=== PATIENT | female | born 1965 | race American Indian/Alaskan Native ===

== ENCOUNTER 2016-11-15 12:32 | Inpatient (IN) | payer OTHER ==
[2016-11-15 14:31] LABS: Basophils % (Auto) 0.3 % (0.0-1.8); Eosinophils % (Auto) 0.2 % (0.0-4.3); Hematocrit 45.7 % (30.3-42.9); Mean Corpuscular HGB Conc 33 % (30-34); Mean Corpuscular Hemoglobin 31 pg (28-32); Mean Corpuscular Volume 94 fl (79-97); Platelet Count 223 K/mm3 (140-440); Red Blood Count 4.84 M/mm3 (3.65-5.03); White Blood Count 9.5 K/mm3 (4.5-11.0)
[2016-11-15 14:49] LABS: Alanine Aminotransferase 61 units/L (7-56); Albumin 4.1 g/dL (3.9-5); Albumin/Globulin Ratio 1.1 %; Alkaline Phosphatase 168 units/L (35-129); Anion Gap 17 mmol/L; Blood Urea Nitrogen 6 mg/dL (7-17); Calcium 9.9 mg/dL (8.4-10.2); Carbon Dioxide 28 mmol/L (22-30); Glucose 124 mg/dL (65-100); Lipase 56 units/L (13-60); Potassium 3.4 mmol/L (3.6-5.0); Sodium 138 mmol/L (137-145); Total Protein 7.9 g/dL (6.3-8.2)
[2016-11-15 19:19] LABS: Bacteria,Urine 1+ /HPF (Negative); Bilirubin,Urine SM (Negative); Blood,Urine NEG (Negative); Ketones,Urine TR mg/dL (Negative); Leukocyte Esterase,Urine MOD (Negative); Mucus,Urine 3+ /HPF; Nitrite,Urine NEG (Negative)
[2016-11-15] MEDS ORDERED: K-DUR PO ONE (22:55)
[2016-11-15] MEDS ORDERED: MAG-OX PO ONE (22:55)
[2016-11-15] MEDS ORDERED: MORPHINE IV ONE (23:01)
[2016-11-15] MEDS ORDERED: ZOFRAN IV ONE (23:01)
[2016-11-15] MEDS ORDERED: PEPCID IV ONE (23:01)
[2016-11-15] MEDS ORDERED: CARAFATE PO ONE (23:01)
[2016-11-15] MEDS ORDERED: NACL 0.9% 1000 ML 1,000 ML IV ONE (23:02)
--- NOTE | 2016-11-15 23:02 | Emergency Department Report ---
ED General Adult HPI - General Chief complaint: Abdominal Pain Stated complaint: ABD/BACK PAIN Time Seen by Provider: 11/15/16 22:55 Source: patient, RN notes reviewed Mode of arrival: Wheelchair Limitations: No Limitations - History of Present Illness Initial comments: This is a 50-year-old female. She is previously unknown to me. She does not have a primary care doctor. She denies chronic medical conditions with exception of hypertension. She has no history of abdominal surgeries that she is aware of. The patient presents to the ER complaining of abdominal pain. The abdominal pain started in the back, paralumbar region, and then radiated proximally, and then around the abdomen. It has been present since Thursday. The pain is sharp and achy. It increases with palpation and range of motion. It decreases with rest. Patient admits to nonbloody, nonbilious emesis times one. She denies irritative urinary symptoms, but thinks that she is not urinating as much as her currently. There is no leg pain. There is no leg swelling. There is no chest pain. There is no shortness of breath. There is no diaphoresis. -: Gradual, days(s) Location: back, abdomen Radiation: abdomen Quality: aching Consistency: intermittent Improves with: rest Worsens with: movement Associated Symptoms: nausea/vomiting - Related Data Allergies Allergy/AdvReac Type Severity Reaction Status Date / Time No Known Allergies Allergy Unverified 11/15/16 14:05 ED Review of Systems ROS: Stated complaint: ABD/BACK PAIN Other details as noted in HPI Constitutional: malaise Eyes: denies: vision change ENT: denies: epistaxis Respiratory: denies: cough Cardiovascular: denies: chest pain Gastrointestinal: abdominal pain Genitourinary: denies: urgency, dysuria Musculoskeletal: back pain Skin: denies: lesions Neurological: weakness ED Past Medical Hx - Past Medical History Hx Hypertension: Yes - Surgical History Additional Surgical History: arm and ankle surgery breast surgery - Social History Smoking Status: Current Every Day Smoker Substance Use Type: Marijuana ED Physical Exam - General Limitations: No Limitations General appearance: alert, in distress, obese - Head Head exam: Present: atraumatic, normocephalic - Eye Eye exam: Present: normal appearance - ENT ENT exam: Present: normal exam, normal orophraynx, mucous membranes moist, normal external ear exam - Neck Neck exam: Present: normal inspection, full ROM. Absent: tenderness, meningismus - Respiratory Respiratory exam: Present: normal lung sounds bilaterally. Absent: respiratory distress, wheezes, rales, rhonchi, stridor, chest wall tenderness, accessory muscle use, decreased breath sounds, prolonged expiratory - Cardiovascular Cardiovascular Exam: Present: regular rate, normal rhythm, normal heart sounds. Absent: bradycardia, tachycardia, irregular rhythm, systolic murmur, diastolic murmur, rubs, gallop - GI/Abdominal GI/Abdominal exam: Present: soft, tenderness, normal bowel sounds. Absent: distended, guarding, rebound, rigid, pulsatile mass - Extremities Exam Extremities exam: Present: normal inspection, full ROM, normal capillary refill. Absent: pedal edema, joint swelling, calf tenderness - Back Exam Back exam: Present: normal inspection, full ROM, paraspinal tenderness. Absent : tenderness, CVA tenderness (R), CVA tenderness (L), muscle spasm - Neurological Exam Neurological exam: Present: alert, oriented X3, other (Extraocular movements intact. Tongue midline. No facial droop. Facial sensation intact to light touch in the V1, V2, V3 distribution bilaterally. 5 and 5 strength in 4 extremities.. Sensation is intact to light touch in 4 extremities.). Absent: motor sensory deficit - Psychiatric Psychiatric exam: Present: normal affect, normal mood - Skin Skin exam: Present: warm, dry, intact, normal color. Absent: rash ED Course Vital Signs 11/15/16 11/16/16 11/16/16 14:06 01:10 03:58 Temperature 98.3 F 98.5 F 97.5 F L Pulse Rate 91 H 85 82 Respiratory 22 20 17 Rate Blood Pressure 159/112 Blood Pressure 167/86 114/59 [Left] O2 Sat by Pulse 98 95 96 Oximetry - Reevaluation(s) Reevaluation #1: 11/15/16 23:49 differential diagnosis: GERD, gastritis, pancreatitis, biliary colic, upper urinary tract infection, perforated viscus, hernia Assessment and plan: 50-year-old female with back pain and abdominal pain. Urinalysis does suggest UTI, but she does not endorse classic irritative symptoms. Has mild obstructive symptoms. Also has nonspecific transaminitis and elevated alkaline phosphatase , with no right upper quadrant tenderness. We will obtain EKG, CT scan of the abdomen and pelvis, and treat the patient symptomatically. We will reassess once the CT scan has resulted. Reevaluation #2: 11/16/16 01:12 case discussed with the hospital physician, Dr. Zuñiga, who accepts the patient to her service. Case discussed with gastroenterology, Dr. Graves, he will follow as a consult. Currently awaiting callback from general surgery. Imaging studies and laboratory studies suggest obstructive hepatopathy, most likely obstructing common bile duct stone, additional pain medication, antibiotics are ordered. Reevaluation #3: 11/16/16 01:14 Case discussed with general surgery, Dr. Huffman, who recommends MRCP, indicates he will follow as a consult. I will defer to the inpatient team to order an MRCP. ED Medical Decision Making - Lab Data Result diagrams: 11/15/16 14:16 11/15/16 14:16 Vital Signs 11/15/16 14:06 Temperature 98.3 F Pulse Rate 91 H Respiratory 22 Rate Blood Pressure 159/112 O2 Sat by Pulse 98 Oximetry Lab Results 11/15/16 11/15/16 11/15/16 Range/Units 14:16 14:16 18:43 WBC 9.5 (4.5-11.0) K/mm3 RBC 4.84 (3.65-5.03) M/mm3 Hgb 15.0 H (10.1-14.3) gm/dl Hct 45.7 H (30.3-42.9) % MCV 94 (79-97) fl MCH 31 (28-32) pg MCHC 33 (30-34) % RDW 14.0 (13.2-15.2) % Plt Count 223 (140-440) K/mm3 Lymph % (Auto) 11.2 L (13.4-35.0) % [place] % (Auto) 6.8 (0.0-7.3) % Eos % (Auto) 0.2 (0.0-4.3) % Baso % (Auto) 0.3 (0.0-1.8) % Lymph # 1.1 L (1.2-5.4) K/mm3 [place] # 0.6 (0.0-0.8) K/mm3 Eos # 0.0 (0.0-0.4) K/mm3 Baso # 0.0 (0.0-0.1) K/mm3 Seg Neutrophils % 81.5 H (40.0-70.0) % Seg Neutrophils # 7.7 (1.8-7.7) K/mm3 Sodium 138 (137-145) mmol/L Potassium 3.4 L (3.6-5.0) mmol/L Chloride 96.0 L (98-107) mmol/L Carbon Dioxide 28 (22-30) mmol/L Anion Gap 17 mmol/L BUN 6 L (7-17) mg/dL Creatinine 0.5 L (0.7-1.2) mg/dL Estimated GFR > 60 ml/min BUN/Creatinine Ratio 12.00 % Glucose 124 H (65-100) mg/dL Calcium 9.9 (8.4-10.2) mg/dL Total Bilirubin 2.10 H (0.1-1.2) mg/dL AST 87 H (5-40) units/L ALT 61 H (7-56) units/L Alkaline Phosphatase 168 H (35-129) units/L Total Protein 7.9 (6.3-8.2) g/dL Albumin 4.1 (3.9-5) g/dL Albumin/Globulin Ratio 1.1 % Lipase 56 (13-60) units/L Urine Color [place] (Yellow) Urine Turbidity Clear (Clear) Urine pH 5.0 (5.0-7.0) Ur Specific [employer] 1.024 (1.003-1.030) Urine Protein 30 mg/dl (Negative) mg/dL Urine Glucose (UA) Neg (Negative) mg/dL Urine Ketones Tr (Negative) mg/dL Urine Blood Neg (Negative) Urine Nitrite Neg (Negative) Urine Bilirubin Sm (Negative) Urine Ictotest Negative (Negative) Urine Urobilinogen 4.0 (<2.0) mg/dL Ur Leukocyte Esterase Mod (Negative) Urine WBC (Auto) 24.0 H (0.0-6.0) /HPF Urine RBC (Auto) 13.0 (0.0-6.0) /HPF U Epithel Cells (Auto) 8.0 (0-13.0) /HPF Urine Bacteria (Auto) 1+ (Negative) /HPF Urine Mucus 3+ /HPF - EKG Data 11/16/16 01:12 Normal sinus, 91 bpm, borderline left axis deviation, right bundle branch block , abnormal EKG, not morphologically consistent with STEMI, QTC 489 ms and prolonged. - Radiology Data Radiology results: report reviewed, image reviewed ruq ultrasound: Stones noted within the gallbladder lumen. The gallbladder wall thickness is prominent at 4 mm., Bile duct is dilated at 11 mm. No definitive stone within the ductal portion is noted. Impression: Cholelithiasis with a large common bile duct measuring up to [address] scan of the abdomen and pelvis demonstrates a distended gallbladder. Stones within the gallbladder lumen., Bile duct is dilated. There is dilatation of the pancreatic duct. No pseudocyst is noted. The appendix is normal. Critical care attestation.: If time is entered above; I have spent that time in minutes in the direct care of this critically ill patient, excluding procedure time. ED Disposition Clinical Impression: Cholecystitis Disposition: OP ADMIT IP TO THIS HOSP Is pt being admited?: Yes Condition: Good
[2016-11-15] MEDS ORDERED: NACL ONE (23:11)
--- NOTE | 2016-11-16 00:50 | Ultrasound Report ---
FINAL REPORT PROCEDURE: US ABDOMEN LIMITED TECHNIQUE: Real-time sonography was performed of the gallbladder with image documentation. CPT 59788 HISTORY: abd pain COMPARISON: No prior studies are available for comparison. FINDINGS: There are stones within the gallbladder lumen. The gallbladder wall thickness is slightly prominent 4 millimeters. Common bile duct is dilated at 11 millimeters. Further evaluation with HIDA scan or advanced imaging such is MRCP may be appropriate. No definitive stone within the ductal system is seen on this study. Portions of the liver imaged are normal. The portions of the right kidney imaged are normal. The pancreas is not visualized.. IMPRESSION: Cholelithiasis with enlarged common bile duct measuring up to 11 millimeters. Further evaluation of the biliary ductal system utilizing HIDA scan or advanced imaging such as MRCP should be entertained.
--- NOTE | 2016-11-16 01:02 | Cat Scan Report ---
FINAL REPORT PROCEDURE: CT ABDOMEN PELVIS W CON TECHNIQUE: Computerized axial tomography of the abdomen and pelvis was performed after the IV injection of iodinated nonionic contrast. HISTORY: abd pain COMPARISON: Abdominal ultrasound the same day FINDINGS: Visualized lower thorax: No significant abnormality. Liver: Normal size and attenuation. Spleen: Normal size and attenuation. Gallbladder and biliary system: The gallbladder is distended. There are stones identified within the gallbladder lumen. There is distention of common bile duct measuring up to 11 millimeters. Slight prominence of the pancreatic duct is also noted. Are some calcifications within the head and body of the pancreas. A chronic pancreatitis pattern is suspected. Definitive stone in the ductal system cannot be adequately assessed on this study. Further evaluation with HIDA scan may be of benefit.. Pancreas: The pancreas size is normal. There is dilatation of the pancreatic duct. Numerous calcifications identified in the head and body of the pancreas. No pseudocyst.. Adrenals: Normal. Kidneys: Normal. GI tract: Stomach is normal. The small bowel has a normal caliber. No obstruction is seen. The cecum, appendix and colon are normal.. Lymph nodes and mesentery: Normal. Vasculature: Normal. Bladder: Normal. Reproductive organs: There is a large calcified mass in the uterus most consistent with a large fibroid.. Peritoneum: No free fluid. Musculoskeletal structures: Moderate degenerative changes of the thoracic and lumbar spine. There is forward subluxation of L4 relation L5 by approximately 4 millimeters.. Other: None. IMPRESSION: Cholelithiasis. The gallbladder lumen is distended. The common bile duct is dilated measuring up to 11 millimeters. The pancreatic duct is dilated. There are numerous calcifications throughout the head and body of the pancreas. Chronic pancreatitis is suspected. Further evaluation of the biliary ductal system utilizing HIDA scan and possibly other imaging modalities may be of benefit this patient. No evidence of intestinal or urinary tract obstruction. No ileus or enteritis. The appendix is normal. Large calcified fibroid in the uterus is suspected as described.
[2016-11-16] MEDS ORDERED: DILAUDID IV ONE (01:06)
[2016-11-16] MEDS ORDERED: ZOSYN/NS 4.5GM/100ML 4.5 GM/100 ML VIAL IV ONE (01:06)
[2016-11-16] MEDS ORDERED: ZOFRAN IV PRN (02:38)
[2016-11-16] MEDS ORDERED: TYLENOL PO PRN (02:38)
[2016-11-16] MEDS ORDERED: MILK OF MAGNESIA PO PRN (02:38)
[2016-11-16] MEDS ORDERED: DULCOLAX PR PRN (02:38)
--- NOTE | 2016-11-16 03:17 | History and Physical Report ---
History of Present Illness Date of examination: 11/16/16 Date of admission: 11/16/16 02:39 History of present illness: 50-year-old woman with a history of hypertension comes to the emergency room with complaints of abdominal pain. Pain starts in the mid back and radiates all the way to the mid abdomen. she describes the pain as sharp, constant, intensity 7/10, she cannot identify exacerbating or relieving factors. Admits to nausea vomiting, no fever or chills Patient denies chest pain, palpitation, shortness of breath, cough, hematochezia, dysuria, frequency, focal weakness, dysarthria, fever chills, polydipsia polyuria, hot or cold intolerance, easy bruisability, or rash or bleeding from mucosal membrane, rhinorrhea, epistaxis, earache, tinnitus, blurry vision, eye discharge, anxiety, depression. Other review of systems negative PAST SURGICAL HISTORY: Cyst removed from the breast, ankle surgery SOCIAL HISTORY: One pack a week, drinking 2 beers a day, no drugs FAMILY HISTORY: Hypertension Medications and Allergies Allergies Allergy/AdvReac Type Severity Reaction Status Date / Time No Known Allergies Allergy Unverified 11/15/16 14:05 Active Meds: Active Medications Acetaminophen (Tylenol) 650 mg PO Q4H PRN PRN Reason: Pain MILD(1-3)/Fever >100.5/CRABTREE Bisacodyl (Dulcolax) 10 mg RI QDAY PRN PRN Reason: Constipation unrelieved by MOM Enoxaparin Sodium (Lovenox) 40 mg SUB-Q QDAY [facility] Sodium Chloride (Nacl 0.9% 1000 Ml) 1,000 mls @ 100 mls/hr IV DIRECT SVEN Magnesium Hydroxide (Milk Of Magnesia) 30 ml PO Q4H PRN PRN Reason: Constipation Morphine Sulfate (Morphine) 2 mg IV Q4H PRN PRN Reason: Pain, Moderate (4-6) Ondansetron HCl (Zofran) 4 mg IV Q8H PRN PRN Reason: N/V unrelieved by Reglan Exam - Physical Exam Narrative exam: Gen. appearance: Patient lying in bed, no apparent distress HEENT: Normocephalic, atraumatic, pupils equally round and reactive to light, extraocular movement intact, and no sclericterus,. No JVD or thyromegaly or nodule,neck supple, no carotid bruit ,mucous membranes moist, no exudate or erythema Heart: S1, S2, regular rate and rhythm Lungs: Clear to auscultation bilaterally, breathing comfortable Abdomen: Positive bowel sounds, tender and mid abdomen, nondistended, no organomegaly Extremity: No edema, cyanosis, clubbing Skin: No rash, nodules, warm, dry Neuro: Oriented 3, cranial nerves II-12 intact, speech is fluent, motor and sensory intact - Constitutional Vitals: Temp Pulse Resp BP Pulse Ox 98.5 F 85 20 167/86 95 11/16/16 01:10 11/16/16 01:10 11/16/16 01:10 11/16/16 01:10 11/16/16 01:10 Results - Labs CBC & Chem 7: 11/15/16 14:16 11/15/16 14:16 - Imaging and Cardiology CT scan - abdomen: report reviewed CT scan - pelvis: report reviewed US - abdomen: report reviewed Assessment and Plan Choledocholithiasis Hypertension Admit to medicine Start IV fluids, IV antibiotics Consult GI, surgery start DVT prophylaxis, morphine
[2016-11-16] MEDS ORDERED: APRESOLINE IV PRN (03:24)
--- NOTE | 2016-11-16 03:44 | Admit Criteria Form ---
Admission Criteria Documentation: GALLBLADDER OR BILE DUCT INFLAMMATION OR STONE Clinical Indications for Admission to Inpatient Care ( Place 'X' for any and all applicable criteria): Admission is indicated for patients with ANY ONE of the following(1)(2)(3)(4)(5) : [ ]I. Acute cholecystitis as indicated by ALL of the following: [ ]a) Right upper quadrant pain, mass, or tenderness [ ]b) Systemic signs of inflammation indicated by ANY ONE of the following: [ ]i) Fever [ ]ii) C-reactive protein level greater than 10 mg/L (95 nmol/L) [ ]iii) White blood cell count greater than 10,000/mm3 (10 x109/L) or less than 4000/mm3 (4 x109/L) [X ]II. Inpatient admission required rather than observation care (Also use Gallbladder or Bile Duct Inflammation or Stone: Observation Care as appropriate) because of ANY ONE of the following: [ ]a) Common bile duct obstruction diagnosed [ ]b) Vomiting that is severe or persistent [ ]c) Severe pain requiring acute inpatient management [ ]d) Signs of intestinal obstruction or peritonitis [A] [ ]e) Severe electrolyte abnormalities requiring inpatient care [ ]f) Absent bowel sounds with complete ileus(8) [ ]g) Hemodynamic instability [ ]h) High fever or infection requiring inpatient admission as indicated by ANY ONE of the following (9): [ ]1) Appropriate outpatient or observation care antimicrobial Treatment. unavailable, not effective, or not feasible [ ]2) Temperature greater than 104.9 degrees F (40.5 degrees C) (oral) [ ]3) Temperature greater than 103.1 degrees F (39.5 degrees C) (oral) or less than 96.8 degrees F (36 degrees C) (rectal) that does not respond to all emergency treatment measures [ ]4) Documented bacteremia [ ]i) IV fluid to replace significant ongoing losses (greater than 3 L/m2 per day) [ ]j) Percutaneous or open drainage (eg, abscess, biliary tract) procedures [ ]k) Immediate inpatient surgery [X ]l) Other condition, treatment or monitoring requiring inpatient admission [ ]III. Acute cholangitis as indicated by ALL of the following(9)(10): [ ]a) Systemic signs of inflammation indicated by ANY ONE of the following: [ ]i) Fever [ ]ii) C-reactive protein level greater than 10 mg/L (95 nmol /L) [ ]iii) White blood cell count greater than 10,000/mm3 (10 x109/L) or less than 4000/mm3 (4 x109/L) [ ]b) Evidence of common bile duct disease indicated by ANY ONE of the following: [ ]i) Total serum bilirubin level greater than or equal to 2 mg/dL (34 micromoles/L) [ ]ii) Liver function test (alkaline phosphatase (ALP), r- glutamyltransferase (GGT), aspartate aminotransferase (AST), or alanine aminotransferase (ALT)) greater than 1.5 times the upper limit of normal[B] [ ]iii) Hepatobiliary imaging showing biliary dilatation or evidence of etiology (eg, stricture, stone, previously placed stent) Extended stay beyond goal length of stay may be needed for (1)(2)): [ ]a) Bacteremia or Hemodynamic instability [ ]b) Cholecystectomy [ ]c) Other surgical procedure(24) [ ]d) Percutaneous or endoscopic ultrasound-guided cholecystostomy The original [facility] content created by [facility] has been revised. The portions of the content which have been revised are identified through the use of italic text or in bold, and [facility] has neither reviewed nor approved the modified material. All other unmodified content is copyright [facility]. Please see references footnoted in the [facility] Admission Criteria Met: Yes
[2016-11-16] MEDS: MORPHINE IV PRN ×4 (05:24→19:56)
[2016-11-16] MEDS ORDERED: ZOSYN/NS 3.375GM/50ML 3.375 GM/50 ML BAG IV SCH (06:00)
[2016-11-16] MEDS: LOVENOX SUB-Q SCH (09:34)
--- NOTE | 2016-11-16 12:18 | Progress Note ---
Assessment and Plan Pt not in room. taken down for MRCP hx as below (from chart) History of present illness: 50-year-old woman with a history of hypertension comes to the emergency room with complaints of abdominal pain. Pain starts in the mid back and radiates all the way to the mid abdomen. she describes the pain as sharp, constant, intensity 7/10, she cannot identify exacerbating or relieving factors. Admits to nausea vomiting, no fever or chills Patient denies chest pain, palpitation, shortness of breath, cough, hematochezia, dysuria, frequency, focal weakness, dysarthria, fever chills, polydipsia polyuria, hot or cold intolerance, easy bruisability, or rash or bleeding from mucosal membrane, rhinorrhea, epistaxis, earache, tinnitus, blurry vision, eye discharge, anxiety, depression. Other review of systems negative PAST SURGICAL HISTORY: Cyst removed from the breast, ankle surgery SOCIAL HISTORY: One pack a week, drinking 2 beers a day, no drugs FAMILY HISTORY: Hypertension await MRCP results await GI eval will follow Selected Entries 11/16/16 08:00 Temperature 98.4 F Pulse Rate [ 63 Right Radial] Respiratory 20 Rate Blood Pressure 117/60 [Right Arm] Laboratory Tests 11/15/16 11/15/16 14:16 14:16 WBC 9.5 Hgb 15.0 H Hct 45.7 H Sodium 138 Potassium 3.4 L Chloride 96.0 L Glucose 124 H Total Bilirubin 2.10 H AST 87 H ALT 61 H Alkaline Phosphatase 168 H Lipase 56 Objective Vital Signs - 12hr 11/16/16 11/16/16 11/16/16 03:58 04:44 08:00 Temperature 97.5 F L 98.3 F 98.4 F Pulse Rate 82 Pulse Rate [ 70 Right From Monitor] Pulse Rate [ 63 Right Radial] Respiratory 17 22 20 Rate Blood Pressure 114/59 [Left] Blood Pressure 130/70 117/60 [Right Arm] O2 Sat by Pulse 96 96 95 Oximetry - Labs 11/15/16 14:16 11/15/16 14:16
[2016-11-16] MEDS: ZOSYN/NS 4.5GM/100ML 4.5 GM/100 ML VIAL IV SCH ×2 (15:38→22:16)
--- NOTE | 2016-11-16 15:48 | Magnetic Resonance Report ---
FINAL REPORT EXAM: MR ABDOMEN MRCP HISTORY: r/o CBD stones TECHNIQUE: Multiplanar, multisequence MRI (MRCP) of the abdomen was performed without intravenous contrast. PRIORS: Right upper quadrant ultrasound and CT of the abdomen and pelvis 11/15/2016. FINDINGS: Lower thorax: The lung bases are clear. The visualized portions of the heart are normal. Liver: There is diffuse drop in signal of the liver on T1 out of phase imaging. Mild intrahepatic biliary ductal dilation is again seen. No focal hepatic lesions. Gallbladder/ biliary system: Previously seen cholelithiasis is not definitively seen on the study. No gallbladder wall thickening. Pericholecystic fluid is again seen. Dilated common bile duct is again seen measuring up to 11 millimeters. There is suggestion of a 4 millimeter filling defect in the distal common bile duct. Spleen: No splenic lesions are seen. Pancreas: Dilated pancreatic duct is again seen measuring up to 9 millimeters. No focal pancreatic lesions are seen. No pancreatic or peripancreatic inflammation. Kidneys: No renal masses, cysts or hydronephrosis. Adrenal glands: No adrenal masses. Vasculature: The abdominal aorta is nonaneurysmal. Lymph nodes: No enlarged lymph nodes are seen in the abdomen. Bowel: No bowel obstruction. No bowel wall thickening. No free fluid. Abdominal wall: No abdominal wall hernia or other subcutaneous findings. Bones: No definite or specific abnormality. IMPRESSION: 1. Possible 4 millimeter distal common bile duct stone with dilated common bile duct, intrahepatic biliary ducts and pancreatic duct. Recommend further evaluation with ERCP. 2. Pericholecystic fluid may be related to acute cholecystitis. 3. Hepatic steatosis.
--- NOTE | 2016-11-16 17:31 | Event Note ---
Date: 11/16/16 Patient was admitted earlier this morning Patient seen and examined She is awake and alert Not in any distress Complains of pain in the right upper quadrant and right mid back Denies any nausea or vomitings or dysuria Abdomen is soft list tenderness across the upper abdomen Await surgery evaluation See H&P for details
--- NOTE | 2016-11-16 20:53 | Consultation ---
History of Present Illness - Reason for Consult Consult date: 11/16/16 - History of Present Illness See Dictated note Medications and Allergies Allergies Allergy/AdvReac Type Severity Reaction Status Date / Time No Known Allergies Allergy Unverified 11/15/16 14:05 Active Meds: Active Medications Acetaminophen (Tylenol) 650 mg PO Q4H PRN PRN Reason: Pain MILD(1-3)/Fever >100.5/CRABTREE Bisacodyl (Dulcolax) 10 mg LA QDAY PRN PRN Reason: Constipation unrelieved by MOM Enoxaparin Sodium (Lovenox) 40 mg SUB-Q QDAY SVEN Last Admin: 11/16/16 09:34 Dose: 40 mg Hydralazine HCl (Apresoline) 5 mg IV Q6H PRN PRN Reason: Hypertension Sodium Chloride (Nacl 0.9% 1000 Ml) 1,000 mls @ 100 mls/hr IV DIRECT SVEN Piperacillin Sod/Tazobactam Sod (Zosyn/Ns 4.5gm/100ml) 4.5 gm in 100 mls @ 200 mls/hr IV Q8HR SVEN Last Admin: 11/16/16 15:38 Dose: 200 mls/hr Magnesium Hydroxide (Milk Of Magnesia) 30 ml PO Q4H PRN PRN Reason: Constipation Morphine Sulfate (Morphine) 2 mg IV Q4H PRN PRN Reason: Pain, Moderate (4-6) Last Admin: 11/16/16 19:56 Dose: 2 mg Ondansetron HCl (Zofran) 4 mg IV Q8H PRN PRN Reason: N/V unrelieved by Reglan Exam - Constitutional Vitals: Temp Pulse Resp BP Pulse Ox 98.5 F 65 18 132/72 95 11/16/16 15:05 11/16/16 15:05 11/16/16 15:05 11/16/16 15:05 11/16/16 15:05 Results - Labs CBC & Chem 7: 11/15/16 14:16 11/15/16 14:16 Assessment and Plan Pt with 4 d hx back and then abd pain with N/V, abnormal LFTs. MRCP shows probable stone in distal CBD. Plan - ERCP - agree with abx for possible cholangitis
[2016-11-17] MEDS: MORPHINE IV PRN ×5 (00:04→23:51)
--- NOTE | 2016-11-17 01:55 | Consultation ---
REFERRING PHYSICIAN: Dr. Zuñiga. REASON FOR CONSULTATION: Abdominal pain. HISTORY OF PRESENT ILLNESS: The patient is a 50-year-old woman who was in her usual state of good health until November 12 when she noted onset of mild right back pain. This progressed and was associated with nausea, vomiting. She then developed epigastric and right-sided abdominal pain as well with ongoing problems with nausea and vomiting. She was also having chills and sweats. Because of progressive symptoms, she presented to the Emergency Room. She states the vomiting has not been frequent, but has been occurring. There has been no GI bleeding. She denies prior similar symptoms. She has no history of peptic ulcer disease. Denies aspirin or nonsteroidal usage. In the ER, she was noted to have elevated liver enzymes and through the course of the day, she has been found to have stones in the distal common bile duct on MRCP as well as multiple stones in the gallbladder. PAST MEDICAL HISTORY: She has no known drug allergies. MEDICATIONS: Hypertension medication is unknown. PAST MEDICAL HISTORY: She has history of: 1. Hypertension. 2. Left breast cyst surgery. FAMILY HISTORY: Noncontributory and negative for malignancy. SOCIAL HISTORY: She smokes a pack per week and states she drinks a 6 pack of beer a week. REVIEW OF SYSTEMS: As noted above and otherwise negative for chest pain, shortness of breath, cough, hemoptysis, dysuria, or hematuria. PHYSICAL EXAMINATION: GENERAL: This is a middle-aged black female lying in bed, in no apparent distress. VITAL SIGNS: Temperature 98.5, pulse 65, blood pressure 132/72. HEENT: She is anicteric. Pupils are round and reactive. Oropharynx is clear. LUNGS: Clear bilaterally to auscultation. CARDIOVASCULAR: Regular with normal S1, S2. No extra heart sounds. ABDOMEN: Soft with good bowel sounds. The patient has moderate tenderness to palpation in the epigastrium and right upper quadrant. RECTAL: Deferred. EXTREMITIES: Reveal no cyanosis, clubbing, or edema. NEUROLOGIC: She is alert and oriented x3. Grossly nonfocal. LABORATORY DATA: White count is 9.5, hemoglobin 15.0, hematocrit 45.7, MCV of 94, platelet count of 223,000. Sodium , potassium 3.4, chloride 96, bicarb 28, BUN 6, creatinine 0.5, glucose is 124. AST is 87, ALT is 61, alk phos 168, total bilirubin is 2.1, albumin is 4.1. DIAGNOSTIC DATA: Ultrasound report is as noted above and MRCP shows dilated common bile duct with probable 4 mm distal filling defect. It also shows pericholecystic fluid and hepatic steatosis. IMPRESSION: Choledocholithiasis - this would be responsible for the pain and possible chills with low-grade cholangitis. I agree with the antibiotics. I discussed the ERCP with the patient. PLAN: ERCP. JOB# [id number] HRC/NTS
[2016-11-17] MEDS: NACL 0.9% 1000 ML 1,000 ML IV SCH ×3 (03:33→19:15)
[2016-11-17] MEDS: ZOSYN/NS 4.5GM/100ML 4.5 GM/100 ML VIAL IV SCH ×3 (06:20→22:48)
[2016-11-17 07:41] LABS: Basophils % (Auto) 0.7 % (0.0-1.8); Eosinophils % (Auto) 2.2 % (0.0-4.3); Hemoglobin 12.6 gm/dl (10.1-14.3); Mean Corpuscular HGB Conc 32 % (30-34); Mean Corpuscular Hemoglobin 31 pg (28-32); Mean Corpuscular Volume 96 fl (79-97); Platelet Count 170 K/mm3 (140-440); Red Blood Count 4.05 M/mm3 (3.65-5.03); Red Cell Distribution Width 13.5 % (13.2-15.2); White Blood Count 7.3 K/mm3 (4.5-11.0)
[2016-11-17] MEDS ORDERED: WATER FOR IRRIG STERILE IR ONE (07:48)
[2016-11-17] MEDS ORDERED: NACL 0.9% 100 ML ONE (07:48)
[2016-11-17 07:57] LABS: Anion Gap 20 mmol/L; Blood Urea Nitrogen 5 mg/dL (7-17); Calcium 8.7 mg/dL (8.4-10.2); Carbon Dioxide 22 mmol/L (22-30); Chloride 101.4 mmol/L (98-107); Glucose 69 mg/dL (65-100); Sodium 139 mmol/L (137-145)
[2016-11-17] MEDS ORDERED: XYLOCAINE MPF 2% ONE (08:00)
[2016-11-17 09:11] LABS: Hematocrit TNR % (30.3-42.9)
[2016-11-17] MEDS ORDERED: DIPRIVAN 10 MG/ML IV ONE ×2 (09:12)
[2016-11-17] MEDS ORDERED: VERSED ONE (09:12)
--- NOTE | 2016-11-17 09:53 | Post Operative Note ---
Pre-op diagnosis: CBD stones Post-op diagnosis: other (CBD stone, dilated duct, gastric fundus ulcer) Findings: 1. CBD stone, removed from duct with balloon. 2. CBD dilated 14 mm. 3. 1 cm gastric fundus ulcer Procedure: ERCP with ES, stone removal Anesthesia: MAC Surgeon: DELMIS AVILEZ Estimated blood loss: minimal Pathology: none Condition: stable Disposition: floor (Will need PPI, and then will assess gastric ulcer in near future with EGD)
[2016-11-17] MEDS ORDERED: PROTONIX IV SCH (10:00)
--- NOTE | 2016-11-17 11:01 | Anesthesia Day of Surgery ---
Anesthesia Day of Surgery - Day of Surgery Patient Examined: Yes Patient H&P Reviewed: Yes Patient is NPO: Yes
--- NOTE | 2016-11-17 11:01 | Anesthesia Consultation ---
Anesthesia Consult and Med Hx Date of service: 11/17/16 - Airway Anesthetic Teeth Evaluation: Dentures (upper) ROM Head & Neck: Adequate Mental/Hyoid Distance: Adequate Mallampati Class: Class II Intubation Access Assessment: Probably Good - Pulmonary Exam CTA: Yes - Cardiac Exam Cardiac Exam: RRR - Pre-Operative Health Status ASA Pre-Surgery Classification: ASA3 Proposed Anesthetic Plan: MAC - Pulmonary Hx Asthma: No COPD: No Hx Pneumonia: No Hx Sleep Apnea: Yes - Cardiovascular System Hx Hypertension: Yes - Central Nervous System Hx Psychiatric Problems: No - Endocrine Hx End Stage Renal Disease: No - Other Systems Hx Cancer: No
--- NOTE | 2016-11-17 11:35 | Operative Report ---
ERCP REPORT PROCEDURE: ERCP with sphincterotomy. PREOPERATIVE DIAGNOSIS: Choledocholithiasis. POSTOPERATIVE DIAGNOSIS: Choledocholithiasis with gastric ulcer. SEDATION: MAC by Anesthesia. HISTORY: The patient is a 50-year-old woman who came in with abdominal and back pain. She was found to have elevated liver enzymes and a 4 mm stone on MRCP with dilated common bile duct. DESCRIPTION OF PROCEDURE: Indications, risks, and benefits were explained and consent was obtained. The patient was placed on abdomen on fluoroscopy table and sedated. Obvious video duodenoscope was passed through the mouth and oropharynx into the descending duodenum. Major papilla was visualized. Then, selective cannulation of the common bile duct was achieved using the Dreamtome and wire. FINDINGS: 1. Bulging major papilla with normal overlying mucosa. 2. CBD is dilated to 14 mm. An 8 mm biliary sphincterotomy was performed in the 12 o'clock direction. Subsequently, a 12 mm balloon was used to sweep the duct with findings of a small 4 to 5 mm yellow stone that came out. No further filling defects were identified. Biliary tree was otherwise unremarkable though gallbladder was not visualized. 3. Pancreatic duct was not visualized. 4. On endoscopy, approximately 1 cm gastric fundus ulcer was noted with no bleeding or stigmata. Visualization was not thorough due to the nature of the ____ scoped. The patient tolerated the procedure well without immediate complications. ESTIMATED BLOOD LOSS: Minimal. IMPRESSION: 1. Choledocholithiasis -- removed after sphincterotomy. 2. Dilated common bile duct. 3. Gastric fundus ulcer. RECOMMENDATIONS: 1. Monitor for response. 2. Avoid aspirin, nonsteroidals and blood thinners for 2 weeks. 3. Proton pump inhibitors. 4. The patient will need an upper endoscopy to assess ulcer in the near future. JOB# [id number] HRC/NTS
--- NOTE | 2016-11-17 13:34 | Progress Note ---
Assessment and Plan Pt resting comfortably. NAD but does c/o some abd pain Abd soft. mild RUQ & epig tenderness GI eval appreciated. s/p successful ERCP with stone extraction continue NPO until pain resolves continue IV antibiotics surgically stable f/u labs in am Selected Entries 11/17/16 11/17/16 09:55 10:32 Temperature 98.5 F Pulse Rate 75 Respiratory 18 Rate Blood Pressure 144/88 Laboratory Tests 11/17/16 11/17/16 06:59 06:59 WBC 7.3 Hgb 12.6 Hct TNR Sodium 139 Potassium 4.0 Chloride 101.4 Carbon Dioxide 22 BUN 5 L Creatinine 0.4 L Objective Vital Signs - 12hr 11/17/16 11/17/16 11/17/16 07:36 08:31 08:34 Temperature 97.5 F L 98.1 F 98.1 F Pulse Rate 85 85 Pulse Rate [ 82 Right Radial] Respiratory 20 22 22 Rate Blood Pressure 141/89 141/89 Blood Pressure 150/82 [Right Arm] O2 Sat by Pulse 95 95 95 Oximetry 11/17/16 11/17/16 11/17/16 09:55 10:20 10:32 Temperature 98.5 F Pulse Rate 97 H 73 75 Pulse Rate [ Right Radial] Respiratory 16 22 18 Rate Blood Pressure 142/88 138/85 144/88 Blood Pressure [Right Arm] O2 Sat by Pulse 95 95 96 Oximetry - Labs 11/17/16 06:59 11/17/16 06:59 Diabetes panel 11/17/16 Range/Units 06:59 Sodium 139 (137-145) mmol/L Potassium 4.0 (3.6-5.0) mmol/L Chloride 101.4 (98-107) mmol/L Carbon Dioxide 22 (22-30) mmol/L BUN 5 L (7-17) mg/dL Creatinine 0.4 L (0.7-1.2) mg/dL Glucose 69 (65-100) mg/dL Calcium 8.7 (8.4-10.2) mg/dL Calcium panel 11/17/16 Range/Units 06:59 Calcium 8.7 (8.4-10.2) mg/dL Pituitary panel 11/17/16 Range/Units 06:59 Sodium 139 (137-145) mmol/L Potassium 4.0 (3.6-5.0) mmol/L Chloride 101.4 (98-107) mmol/L Carbon Dioxide 22 (22-30) mmol/L BUN 5 L (7-17) mg/dL Creatinine 0.4 L (0.7-1.2) mg/dL Glucose 69 (65-100) mg/dL Calcium 8.7 (8.4-10.2) mg/dL Adrenal panel 11/17/16 Range/Units 06:59 Sodium 139 (137-145) mmol/L Potassium 4.0 (3.6-5.0) mmol/L Chloride 101.4 (98-107) mmol/L Carbon Dioxide 22 (22-30) mmol/L BUN 5 L (7-17) mg/dL Creatinine 0.4 L (0.7-1.2) mg/dL Glucose 69 (65-100) mg/dL Calcium 8.7 (8.4-10.2) mg/dL
[2016-11-17 13:47] LABS: Hematocrit 38.5 % (30.3-42.9); Hemoglobin 12.6 gm/dl (10.1-14.3); Mean Corpuscular HGB Conc 33 % (30-34); Mean Corpuscular Hemoglobin 31 pg (28-32); Mean Corpuscular Volume 95 fl (79-97); Platelet Count 174 K/mm3 (140-440); Red Blood Count 4.05 M/mm3 (3.65-5.03); Red Cell Distribution Width 13.5 % (13.2-15.2); White Blood Count 7.2 K/mm3 (4.5-11.0)
[2016-11-17] MEDS: PROTONIX IV SCH ×2 (14:01→22:49)
--- NOTE | 2016-11-17 14:02 | Progress Note ---
Assessment and Plan 50-year-old woman with a history of hypertension comes to the emergency room with complaints of abdominal pain. MRCP's showed 4 mm distal common bile duct stone, which was removed today by ERCP. Choledocholithiasis and cholecystisis - status post removal by ERCP - Started on diet - General surgeon also following for possible cholecystectomy\ - Continue to zosyn empirically for now Hypertension - Continue home medications, adjust as needed Abdomen pain - Due to choledocholithiasis and possible cholecystitis - improved after ERCP Gastric ulcer - Incidental finding during ERCP - Continue Protonix twice a day, will need outpatient follow-up with GI DVT prophylaxis with lovenox Procedure: ERCP with ES, stone removal Findings: 1. CBD stone, removed from duct with balloon. 2. CBD dilated 14 mm. 3. 1 cm gastric fundus ulcer Subjective Date of service: 11/17/16 Interval history: Patient seen and examined. Medical records and medication list reviewed. No acute event overnight noted by the RN. Patient denies any chest pain or difficulty breathing. Status post ERCP today, started on diet. Discussed plan of care at bedside with patient. Objective - Constitutional Vitals: Vital Signs - 12hr 11/17/16 11/17/16 11/17/16 07:36 08:31 08:34 Temperature 97.5 F L 98.1 F 98.1 F Pulse Rate 85 85 Pulse Rate [ 82 Right Radial] Respiratory 20 22 22 Rate Blood Pressure 141/89 141/89 Blood Pressure 150/82 [Right Arm] O2 Sat by Pulse 95 95 95 Oximetry 11/17/16 11/17/16 11/17/16 09:55 10:20 10:32 Temperature 98.5 F Pulse Rate 97 H 73 75 Pulse Rate [ Right Radial] Respiratory 16 22 18 Rate Blood Pressure 142/88 138/85 144/88 Blood Pressure [Right Arm] O2 Sat by Pulse 95 95 96 Oximetry General appearance: Present: no acute distress, well-nourished - EENT Eyes: PERRL, EOM intact ENT: hearing intact, clear oral mucosa Ears: bilateral: normal - Neck Neck: supple, normal ROM - Respiratory Respiratory effort: normal Respiratory: bilateral: CTA - Breasts Breasts: normal - Cardiovascular Rhythm: regular Heart Sounds: Present: S1 & S2. Absent: gallop, rub Extremities: pulses intact, No edema, normal color, Full ROM - Gastrointestinal General gastrointestinal: Present: soft, non-tender, non-distended, normal bowel sounds - Integumentary Integumentary: clear, warm, dry - Musculoskeletal Musculoskeletal: 1, strength equal bilaterally - Neurologic Neurologic: moves all extremities - Psychiatric Psychiatric: memory intact, appropriate mood/affect, intact judgment & insight - Labs CBC & Chem 7: 11/17/16 13:23 11/17/16 06:59 Labs: Abnormal lab results 11/17/16 11/17/16 Range/Units 06:59 06:59 [place] % (Auto) 11.0 H (0.0-7.3) % BUN 5 L (7-17) mg/dL Creatinine 0.4 L (0.7-1.2) mg/dL
[2016-11-17] MEDS: LOVENOX SUB-Q SCH (23:05)
[2016-11-18] MEDS: NACL 0.9% 1000 ML 1,000 ML IV SCH ×2 (05:58→17:57)
[2016-11-18] MEDS: ZOSYN/NS 4.5GM/100ML 4.5 GM/100 ML VIAL IV SCH ×3 (06:00→21:57)
--- NOTE | 2016-11-18 07:52 | Fluoroscopy Report ---
FLUOROSCOPY ERCP BILIARY AND PANCREATIC DUCTS HISTORY: Common bile duct stone. FINDINGS: Fluoroscopy was provided by radiology during ERCP. 7 fluoroscopic images were captured. The operative notes mention stones were removed from the common bile duct via balloon sweep technique. Papillotomy was performed. The pancreatic duct was not injected. Please correlate with the procedural report. By Dr. Graves. IMPRESSION: Removal of common bile duct stones during ERCP.
[2016-11-18 08:05] LABS: Alanine Aminotransferase 57 units/L (7-56); Albumin 2.8 g/dL (3.9-5); Albumin/Globulin Ratio 0.9 %; Alkaline Phosphatase 113 units/L (35-129); Amylase 50 units/L (27-131); Anion Gap 17 mmol/L; Basophils % (Auto) 0.4 % (0.0-1.8); Blood Urea Nitrogen 5 mg/dL (7-17); Calcium 8.3 mg/dL (8.4-10.2); Carbon Dioxide 22 mmol/L (22-30); Eosinophils % (Auto) 3.5 % (0.0-4.3); Glucose 64 mg/dL (65-100); Hematocrit 36.4 % (30.3-42.9); Mean Corpuscular HGB Conc 33 % (30-34); Mean Corpuscular Hemoglobin 31 pg (28-32); Mean Corpuscular Volume 95 fl (79-97); Platelet Count 181 K/mm3 (140-440); Potassium 3.2 mmol/L (3.6-5.0); Red Blood Count 3.83 M/mm3 (3.65-5.03); Red Cell Distribution Width 13.4 % (13.2-15.2); Sodium 139 mmol/L (137-145); White Blood Count 6.1 K/mm3 (4.5-11.0)
[2016-11-18] MEDS: PROTONIX IV SCH ×2 (10:04→21:57)
--- NOTE | 2016-11-18 11:55 | Gastroenterology Progress Note ---
Assessment and Plan 1. choledocholithiasis -S/P ERCP revealed choledocholithiasis- removed after sphincterotomy and also a 1cm gastric ulcer -patient denies abd pain today or N/V -LFTs trending down -afebrile -WBC-WNL -continue PPI -clear liquid diet and advance as tolerated -recommend an outpatient EGD to assess ulcer -okay to d/c from GI standpoint on PPI with follow-up appt in 7-14 days -discussed need and importance of follow-up appt with patient, voiced understanding- office card and information given to pt Subjective Date of service: 11/18/16 Principal diagnosis: choledocholithiasis Interval history: Patient walking around room this morning. No distress noted. Denies abd pain or N/V. Objective - Constitutional Vitals: Temp Pulse Resp BP Pulse Ox 98.4 F 64 18 139/79 98 11/18/16 07:00 11/18/16 07:00 11/18/16 07:00 11/18/16 07:00 11/18/16 07:00 General appearance: no acute distress - EENT Eyes: PERRL, EOM intact ENT: hearing intact - Neck Neck: supple, normal ROM - Respiratory Respiratory: bilateral: CTA - Cardiovascular Rhythm: regular Heart Sounds: Present: S1 & S2 - Extremities Extremities: No edema - Gastrointestinal General gastrointestinal: Present: soft, non-tender, non-distended, normal bowel sounds - Integumentary Integumentary: Present: warm, dry - Neurologic Neurological: alert and oriented x3 - Psychiatric Psychiatric: appropriate mood/affect, cooperative - Labs CBC & Chem 7: 11/18/16 07:11 11/18/16 07:11 Labs: Laboratory Results - last 24 hr 11/17/16 11/18/16 11/18/16 13:23 07:11 07:11 WBC 7.2 6.1 RBC 4.05 3.83 Hgb 12.6 12.0 Hct 38.5 D 36.4 MCV 95 95 MCH 31 31 MCHC 33 33 RDW 13.5 13.4 Plt Count 174 181 Lymph % (Auto) 26.6 [place] % (Auto) 10.3 H Eos % (Auto) 3.5 Baso % (Auto) 0.4 Lymph # 1.6 [place] # 0.6 Eos # 0.2 Baso # 0.0 Seg Neutrophils % 59.2 Seg Neutrophils # 3.6 Sodium 139 Potassium 3.2 L Chloride 103.0 Carbon Dioxide 22 Anion Gap 17 BUN 5 L Creatinine 0.5 L Estimated GFR > 60 BUN/Creatinine Ratio 10.00 Glucose 64 L Calcium 8.3 L Total Bilirubin 2.50 H AST 62 H ALT 57 H Alkaline Phosphatase 113 Total Protein 6.0 L D Albumin 2.8 L Albumin/Globulin Ratio 0.9 Amylase 50
--- NOTE | 2016-11-18 12:00 | Progress Note ---
Assessment and Plan Pt feeling well this am. neg abd pain Abd soft, non tender T Cristofer higher today clinically stable attempt cl liq diet repeat LFT's in am Selected Entries 11/18/16 07:00 Temperature 98.4 F Pulse Rate [ 64 Right Radial] Respiratory 18 Rate Blood Pressure 139/79 [Right Arm] Laboratory Tests 11/15/16 11/18/16 11/18/16 14:16 07:11 07:11 WBC 6.1 Hgb 12.0 Hct 36.4 Total Bilirubin 2.10 H 2.50 H AST 62 H ALT 57 H Alkaline Phosphatase 113 Objective Vital Signs - 12hr 11/18/16 11/18/16 00:34 07:00 Temperature 98.4 F Pulse Rate [ 64 Right Radial] Respiratory 18 18 Rate Blood Pressure 139/79 [Right Arm] O2 Sat by Pulse 98 Oximetry - Labs 11/18/16 07:11 11/18/16 07:11 Diabetes panel 11/18/16 Range/Units 07:11 Sodium 139 (137-145) mmol/L Potassium 3.2 L (3.6-5.0) mmol/L Chloride 103.0 (98-107) mmol/L Carbon Dioxide 22 (22-30) mmol/L BUN 5 L (7-17) mg/dL Creatinine 0.5 L (0.7-1.2) mg/dL Glucose 64 L (65-100) mg/dL Calcium 8.3 L (8.4-10.2) mg/dL AST 62 H (5-40) units/L ALT 57 H (7-56) units/L Alkaline Phosphatase 113 (35-129) units/L Total Protein 6.0 L D (6.3-8.2) g/dL Albumin 2.8 L (3.9-5) g/dL Calcium panel 11/18/16 Range/Units 07:11 Calcium 8.3 L (8.4-10.2) mg/dL Albumin 2.8 L (3.9-5) g/dL Pituitary panel 11/18/16 Range/Units 07:11 Sodium 139 (137-145) mmol/L Potassium 3.2 L (3.6-5.0) mmol/L Chloride 103.0 (98-107) mmol/L Carbon Dioxide 22 (22-30) mmol/L BUN 5 L (7-17) mg/dL Creatinine 0.5 L (0.7-1.2) mg/dL Glucose 64 L (65-100) mg/dL Calcium 8.3 L (8.4-10.2) mg/dL Adrenal panel 11/18/16 Range/Units 07:11 Sodium 139 (137-145) mmol/L Potassium 3.2 L (3.6-5.0) mmol/L Chloride 103.0 (98-107) mmol/L Carbon Dioxide 22 (22-30) mmol/L BUN 5 L (7-17) mg/dL Creatinine 0.5 L (0.7-1.2) mg/dL Glucose 64 L (65-100) mg/dL Calcium 8.3 L (8.4-10.2) mg/dL Total Bilirubin 2.50 H (0.1-1.2) mg/dL AST 62 H (5-40) units/L ALT 57 H (7-56) units/L Alkaline Phosphatase 113 (35-129) units/L Total Protein 6.0 L D (6.3-8.2) g/dL Albumin 2.8 L (3.9-5) g/dL
--- NOTE | 2016-11-18 13:59 | Progress Note ---
Assessment and Plan Assessment and plan: Patient is a 50-year-old woman with a history of hypertension comes to the emergency room with complaints of abdominal pain. MRCP's showed 4 mm distal common bile duct stone, which was removed today by ERCP. 11/15/2016 ultrasound abdomen limited report as cholelithiasis was enlarged common bowel duct measuring up to 11 mm. For the evaluation of the biliary ductal system utilizing HIDA scan Norvasc imaging such as MRCP should be entertained Choledocholithiasis and ?acute cholecystisis - status post removal by ERCP - Started on diet - General surgeon also following for possible cholecystectomy - Continue to zosyn empirically for now Severe protein calorie malnutrition, present on admission: Dietary follow-up Hypertension - Continue home medications, adjust as needed Abdomen pain - Due to choledocholithiasis and possible cholecystitis - improved after ERCP Gastric ulcer - Incidental finding during ERCP - Continue Protonix twice a day, will need outpatient follow-up with GI DVT prophylaxis with SCDs only, held Lovenox because of drop in hematocrit, repeat CBC a.m. Procedure: ERCP with ES, stone removal Findings: 1. CBD stone, removed from duct with balloon. 2. CBD dilated 14 mm. 3. 1 cm gastric fundus ulcer 11/18/2016: Start clear liquid diet, repeat liver function in a.m. replace potassium and check magnesium a.m. also check CBC with history of gastric ulcer on subcutaneous Lovenox, hypoglycemic, give dextrose and recheck BG History Interval history: Patient seen and examined. Follow up on abdominal pain. Overnight uneventful. No cp, sob, n/v or severe headaches. Imaging, old records, testing, labs, nursing notes reviewed. Hospitalist Physical - Physical exam Narrative exam: GEN: WDWN, NAD, AWAKE, ALERT, ORIENTATED x 3 HEENT: NCAT, PERRL, EOMI, OP CLEAR NECK: SUPPLE, NO THYROMEGALY, NO JVD, NO LAD CVS: RRR, NORMAL S1S2 LUNGS/CHEST: CTA B, NORMAL CHEST EXPANSION B, GOOD AIR ENTRY B ABD: SOFT, no severe tenderness or distention GBS, NO REBOUND OR GUARDING EXT/SKIN: NO SIGNIFICANT EDEMA OR RASH MSK: FROM X 4 EXTREMITIES NEURO: CN 2-12 GROSSLY INTACT, NO FOCAL DEFICITS PSY: CALM - Constitutional Vitals: Temp Pulse Resp BP Pulse Ox 98.4 F 64 18 139/79 98 11/18/16 07:00 11/18/16 07:00 11/18/16 07:00 11/18/16 07:00 11/18/16 07:00 General appearance: Present: no acute distress, well-nourished Results - Labs CBC & Chem 7: 11/18/16 07:11 11/18/16 07:11 Labs: Laboratory Last Values WBC 6.1 K/mm3 (4.5-11.0) 11/18/16 07:11 RBC 3.83 M/mm3 (3.65-5.03) 11/18/16 07:11 Hgb 12.0 gm/dl (10.1-14.3) 11/18/16 07:11 Hct 36.4 % (30.3-42.9) 11/18/16 07:11 MCV 95 fl (79-97) 11/18/16 07:11 MCH 31 pg (28-32) 11/18/16 07:11 MCHC 33 % (30-34) 11/18/16 07:11 RDW 13.4 % (13.2-15.2) 11/18/16 07:11 Plt Count 181 K/mm3 (140-440) 11/18/16 07:11 Lymph % (Auto) 26.6 % (13.4-35.0) 11/18/16 07:11 [place] % (Auto) 10.3 % (0.0-7.3) H 11/18/16 07:11 Eos % (Auto) 3.5 % (0.0-4.3) 11/18/16 07:11 Baso % (Auto) 0.4 % (0.0-1.8) 11/18/16 07:11 Lymph # 1.6 K/mm3 (1.2-5.4) 11/18/16 07:11 [place] # 0.6 K/mm3 (0.0-0.8) 11/18/16 07:11 Eos # 0.2 K/mm3 (0.0-0.4) 11/18/16 07:11 Baso # 0.0 K/mm3 (0.0-0.1) 11/18/16 07:11 Seg Neutrophils % 59.2 % (40.0-70.0) 11/18/16 07:11 Seg Neutrophils # 3.6 K/mm3 (1.8-7.7) 11/18/16 07:11 Sodium 139 mmol/L (137-145) 11/18/16 07:11 Potassium 3.2 mmol/L (3.6-5.0) L 11/18/16 07:11 Chloride 103.0 mmol/L (98-107) 11/18/16 07:11 Carbon Dioxide 22 mmol/L (22-30) 11/18/16 07:11 Anion Gap 17 mmol/L 11/18/16 07:11 BUN 5 mg/dL (7-17) L 11/18/16 07:11 Creatinine 0.5 mg/dL (0.7-1.2) L 11/18/16 07:11 Estimated GFR > 60 ml/min 11/18/16 07:11 BUN/Creatinine Ratio 10.00 % 11/18/16 07:11 Glucose 64 mg/dL (65-100) L 11/18/16 07:11 Calcium 8.3 mg/dL (8.4-10.2) L 11/18/16 07:11 Total Bilirubin 2.50 mg/dL (0.1-1.2) H 11/18/16 07:11 AST 62 units/L (5-40) H 11/18/16 07:11 ALT 57 units/L (7-56) H 11/18/16 07:11 Alkaline Phosphatase 113 units/L (35-129) 11/18/16 07:11 Total Protein 6.0 g/dL (6.3-8.2) L D 11/18/16 07:11 Albumin 2.8 g/dL (3.9-5) L 11/18/16 07:11 Albumin/Globulin Ratio 0.9 % 11/18/16 07:11 Amylase 50 units/L (27-131) 11/18/16 07:11 Lipase 56 units/L (13-60) 11/15/16 14:16 Urine Color [place] (Yellow) 11/15/16 18:43 Urine Turbidity Clear (Clear) 11/15/16 18:43 Urine pH 5.0 (5.0-7.0) 11/15/16 18:43 Ur Specific [place] 1.024 (1.003-1.030) 11/15/16 18:43 Urine Protein 30 mg/dl mg/dL (Negative) 11/15/16 18:43 Urine Glucose (UA) Neg mg/dL (Negative) 11/15/16 18:43 Urine Ketones Tr mg/dL (Negative) 11/15/16 18:43 Urine Blood Neg (Negative) 11/15/16 18:43 Urine Nitrite Neg (Negative) 11/15/16 18:43 Urine Bilirubin Sm (Negative) 11/15/16 18:43 Urine Ictotest Negative (Negative) 11/15/16 18:43 Urine Urobilinogen 4.0 mg/dL (<2.0) 11/15/16 18:43 Ur Leukocyte Esterase Mod (Negative) 11/15/16 18:43 Urine WBC (Auto) 24.0 /HPF (0.0-6.0) H 11/15/16 18:43 Urine RBC (Auto) 13.0 /HPF (0.0-6.0) 11/15/16 18:43 U Epithel Cells (Auto) 8.0 /HPF (0-13.0) 11/15/16 18:43 Urine Bacteria (Auto) 1+ /HPF (Negative) 11/15/16 18:43 Urine Mucus 3+ /HPF 11/15/16 18:43
[2016-11-18] MEDS ORDERED: POTASSIUM CHLORIDE PO ONE ×2 (14:30→18:00)
[2016-11-18] MEDS ORDERED: D50W (25GM) IV ONE ×2 (14:30→18:00)
[2016-11-18] MEDS ORDERED: LOVENOX SUB-Q SCH (22:00)
[2016-11-19] MEDS: NACL 0.9% 1000 ML 1,000 ML IV SCH (04:47)
[2016-11-19] MEDS: ZOSYN/NS 4.5GM/100ML 4.5 GM/100 ML VIAL IV SCH ×2 (06:32→16:25)
[2016-11-19 09:02] LABS: Hematocrit 37.7 % (30.3-42.9); Hemoglobin 12.3 gm/dl (10.1-14.3); Mean Corpuscular HGB Conc 33 % (30-34); Mean Corpuscular Hemoglobin 31 pg (28-32); Mean Corpuscular Volume 96 fl (79-97); Platelet Count 173 K/mm3 (140-440); Red Blood Count 3.91 M/mm3 (3.65-5.03); Red Cell Distribution Width 13.4 % (13.2-15.2); White Blood Count 5.8 K/mm3 (4.5-11.0)
[2016-11-19 09:29] LABS: Alanine Aminotransferase 46 units/L (7-56); Albumin/Globulin Ratio 0.9 %; Alkaline Phosphatase 115 units/L (35-129); Anion Gap 15 mmol/L; Blood Urea Nitrogen 3 mg/dL (7-17); Calcium 8.8 mg/dL (8.4-10.2); Carbon Dioxide 26 mmol/L (22-30); Chloride 104.5 mmol/L (98-107); Glucose 83 mg/dL (65-100); Sodium 141 mmol/L (137-145); Total Protein 6.4 g/dL (6.3-8.2)
[2016-11-19 09:35] LABS: Potassium 4.1 mmol/L (3.6-5.0)
--- NOTE | 2016-11-19 11:12 | Progress Note ---
Assessment and Plan Assessment and plan: Patient is a 50-year-old woman with a history of hypertension comes to the emergency room with complaints of abdominal pain. MRCP's showed 4 mm distal common bile duct stone, which was removed today by ERCP. 11/15/2016 ultrasound abdomen limited report as cholelithiasis was enlarged common bowel duct measuring up to 11 mm. For the evaluation of the biliary ductal system utilizing HIDA scan Norvasc imaging such as MRCP should be entertained Choledocholithiasis and ?acute cholecystisis - status post removal by ERCP - Started on diet - General surgeon also following for possible cholecystectomy - Continue to zosyn empirically for now Severe protein calorie malnutrition, present on admission: Dietary follow-up Hypertension - Continue home medications, adjust as needed Abdomen pain - Due to choledocholithiasis and possible cholecystitis - improved after ERCP Gastric ulcer - Incidental finding during ERCP - Continue Protonix twice a day, will need outpatient follow-up with GI DVT prophylaxis with SCDs only, held Lovenox because of drop in hematocrit, repeat CBC a.m. Procedure: ERCP with ES, stone removal Findings: 1. CBD stone, removed from duct with balloon. 2. CBD dilated 14 mm. 3. 1 cm gastric fundus ulcer 11/18/2016: Start clear liquid diet, repeat liver function in a.m. replace potassium and check magnesium a.m. also check CBC with history of gastric ulcer on subcutaneous Lovenox, hypoglycemic, give dextrose and recheck BG 11/19/2016: She tolerated diet, asymptomatic, wants to go home, bp is high due to Normal saline IVF, replace magnesium, d/c once cleared by Gen. Surgery. History Interval history: Patient seen and examined. Follow up on abdominal pain==>none. Overnight uneventful. No cp, sob, n/v or severe headaches. Imaging, old records, testing, labs, nursing notes reviewed. Sister Sunshine at bedside. Hospitalist Physical - Physical exam Narrative exam: GEN: WDWN, NAD, AWAKE, ALERT, ORIENTATED x 3 CVS: RRR, NORMAL S1S2 LUNGS/CHEST: CTA B, NORMAL CHEST EXPANSION B, GOOD AIR ENTRY B ABD: SOFT, ntnd, GBS, NO REBOUND OR GUARDING EXT/SKIN: NO SIGNIFICANT EDEMA OR RASH MSK: FROM X 4 EXTREMITIES NEURO: CN 2-12 GROSSLY INTACT, NO FOCAL DEFICITS PSY: CALM - Constitutional Vitals: Temp Pulse Resp BP Pulse Ox 98.4 F 60 18 172/79 97 11/19/16 08:00 11/19/16 08:00 11/19/16 08:00 11/19/16 08:00 11/19/16 08:00 General appearance: Present: no acute distress, well-nourished Results - Labs CBC & Chem 7: 11/19/16 07:59 11/19/16 07:59 Labs: Laboratory Last Values WBC 5.8 K/mm3 (4.5-11.0) 11/19/16 07:59 RBC 3.91 M/mm3 (3.65-5.03) 11/19/16 07:59 Hgb 12.3 gm/dl (10.1-14.3) 11/19/16 07:59 Hct 37.7 % (30.3-42.9) 11/19/16 07:59 MCV 96 fl (79-97) 11/19/16 07:59 MCH 31 pg (28-32) 11/19/16 07:59 MCHC 33 % (30-34) 11/19/16 07:59 RDW 13.4 % (13.2-15.2) 11/19/16 07:59 Plt Count 173 K/mm3 (140-440) 11/19/16 07:59 Lymph % (Auto) 26.6 % (13.4-35.0) 11/18/16 07:11 Anderson % (Auto) 10.3 % (0.0-7.3) H 11/18/16 07:11 Eos % (Auto) 3.5 % (0.0-4.3) 11/18/16 07:11 Baso % (Auto) 0.4 % (0.0-1.8) 11/18/16 07:11 Lymph # 1.6 K/mm3 (1.2-5.4) 11/18/16 07:11 Anderson # 0.6 K/mm3 (0.0-0.8) 11/18/16 07:11 Eos # 0.2 K/mm3 (0.0-0.4) 11/18/16 07:11 Baso # 0.0 K/mm3 (0.0-0.1) 11/18/16 07:11 Seg Neutrophils % 59.2 % (40.0-70.0) 11/18/16 07:11 Seg Neutrophils # 3.6 K/mm3 (1.8-7.7) 11/18/16 07:11 Sodium 141 mmol/L (137-145) 11/19/16 07:59 Potassium 4.1 mmol/L (3.6-5.0) D 11/19/16 07:59 Chloride 104.5 mmol/L (98-107) 11/19/16 07:59 Carbon Dioxide 26 mmol/L (22-30) 11/19/16 07:59 Anion Gap 15 mmol/L 11/19/16 07:59 BUN 3 mg/dL (7-17) L 11/19/16 07:59 Creatinine 0.5 mg/dL (0.7-1.2) L 11/19/16 07:59 Estimated GFR > 60 ml/min 11/19/16 07:59 BUN/Creatinine Ratio 6.00 % 11/19/16 07:59 Glucose 83 mg/dL (65-100) 11/19/16 07:59 Calcium 8.8 mg/dL (8.4-10.2) 11/19/16 07:59 Magnesium 1.40 mg/dL (1.7-2.3) L 11/19/16 07:59 Total Bilirubin 1.60 mg/dL (0.1-1.2) H 11/19/16 07:59 AST 38 units/L (5-40) 11/19/16 07:59 ALT 46 units/L (7-56) 11/19/16 07:59 Alkaline Phosphatase 115 units/L (35-129) 11/19/16 07:59 Total Protein 6.4 g/dL (6.3-8.2) 11/19/16 07:59 Albumin 3.0 g/dL (3.9-5) L 11/19/16 07:59 Albumin/Globulin Ratio 0.9 % 11/19/16 07:59 Amylase 50 units/L (27-131) 11/18/16 07:11 Lipase 56 units/L (13-60) 11/15/16 14:16 Urine Color Courtney (Yellow) 11/15/16 18:43 Urine Turbidity Clear (Clear) 11/15/16 18:43 Urine pH 5.0 (5.0-7.0) 11/15/16 18:43 Ur Specific [place] 1.024 (1.003-1.030) 11/15/16 18:43 Urine Protein 30 mg/dl mg/dL (Negative) 11/15/16 18:43 Urine Glucose (UA) Neg mg/dL (Negative) 11/15/16 18:43 Urine Ketones Tr mg/dL (Negative) 11/15/16 18:43 Urine Blood Neg (Negative) 11/15/16 18:43 Urine Nitrite Neg (Negative) 11/15/16 18:43 Urine Bilirubin Sm (Negative) 11/15/16 18:43 Urine Ictotest Negative (Negative) 11/15/16 18:43 Urine Urobilinogen 4.0 mg/dL (<2.0) 11/15/16 18:43 Ur Leukocyte Esterase Mod (Negative) 11/15/16 18:43 Urine WBC (Auto) 24.0 /HPF (0.0-6.0) H 11/15/16 18:43 Urine RBC (Auto) 13.0 /HPF (0.0-6.0) 11/15/16 18:43 U Epithel Cells (Auto) 8.0 /HPF (0-13.0) 11/15/16 18:43 Urine Bacteria (Auto) 1+ /HPF (Negative) 11/15/16 18:43 Urine Mucus 3+ /HPF 11/15/16 18:43
[2016-11-19] MEDS: PROTONIX IV SCH (11:15)
--- NOTE | 2016-11-19 11:15 | Discharge Summary ---
Providers - Providers Date of Admission: 11/16/16 02:39 Date of discharge: 11/19/16 Attending physician: JADA BLISS Primary care physician: [employer] Hospitalization Condition: Stable Hospital course: Patient is a 50-year-old woman with a history of hypertension comes to the emergency room with complaints of abdominal pain. MRCP's showed 4 mm distal common bile duct stone, which was removed today by ERCP. 11/15/2016 ultrasound abdomen limited report as cholelithiasis was enlarged common bowel duct measuring up to 11 mm. For the evaluation of the biliary ductal system utilizing HIDA scan or imaging such as MRCP should be entertained. Choledocholithiasis and ?acute cholecystisis - status post removal by ERCP - Started on diet - General surgeon also following for possible cholecystectomy - Continue to zosyn empirically for now Severe protein calorie malnutrition, present on admission: Dietary follow-up Hypertension - Continue home medications, adjust as needed Abdomen pain - Due to choledocholithiasis and possible cholecystitis - improved after ERCP Gastric ulcer - Incidental finding during ERCP - Continue Protonix twice a day, will need outpatient follow-up with GI DVT prophylaxis with SCDs only, held Lovenox because of drop in hematocrit, repeat CBC a.m. Procedure: ERCP with ES, stone removal Findings: 1. CBD stone, removed from duct with balloon. 2. CBD dilated 14 mm. 3. 1 cm gastric fundus ulcer 11/18/2016: Start clear liquid diet, repeat liver function in a.m. replace potassium and check magnesium a.m. also check CBC with history of gastric ulcer on subcutaneous Lovenox, hypoglycemic, give dextrose and recheck BG 11/19/2016: She tolerated diet, asymptomatic, wants to go home, bp is high due to Normal saline IVF, replace magnesium, d/c once cleared by Gen. Surgery. Disposition: DC-01 TO HOME OR SELFCARE Time spent for discharge: 34 minutes Core Measure Documentation - Palliative Care Palliative Care/ Comfort Measures: Not Applicable - Core Measures Any of the following diagnoses?: none - VTE Discharge Requirements Deep Vein Thrombosis/Pulmonary Embolism Present on Admission: No Has pt received <5 days of overlap therapy or INR<2.0: No Anticoagulant overlap therapy prescribed at discharge: No Contraindication No Overlap Therapy order at DC: Not Indicated Exam - Physical Exam Narrative exam: GEN: WDWN, NAD, AWAKE, ALERT, ORIENTATED x 3 CVS: RRR, NORMAL S1S2 LUNGS/CHEST: CTA B, NORMAL CHEST EXPANSION B, GOOD AIR ENTRY B ABD: SOFT, ntnd, GBS, NO REBOUND OR GUARDING EXT/SKIN: NO SIGNIFICANT EDEMA OR RASH MSK: FROM X 4 EXTREMITIES NEURO: CN 2-12 GROSSLY INTACT, NO FOCAL DEFICITS PSY: CALM - Constitutional Vitals: Temp Pulse Resp BP Pulse Ox 98.4 F 60 18 172/79 97 11/19/16 08:00 11/19/16 08:00 11/19/16 08:00 11/19/16 08:00 11/19/16 08:00 Plan Activity: advance as tolerated Diet: clear liquids, advance as tolerated Follow up with: PRIMARY CAREMD [Primary Care Provider] - 3-5 Days DELMIS AVILEZ MD [Staff Physician] - 7 Days ALEXANDRA PATRICK MD [Staff Physician] - 7 Days Prescriptions: Ondansetron [Zofran Oral Liq] 4 mg PO Q4H PRN #1 bottle PRN Reason: Nausea Pantoprazole [Protonix] 40 mg PO BID #30 tablet
--- NOTE | 2016-11-19 12:55 | Progress Note ---
Assessment and Plan Pt feeling well. steph cl liq. hungry wants to go home Abd soft, non tender T Cristofer down surgically stable advance to solid low fat diet may d/c today from surgical perspective if diet steph rto Thursday Selected Entries 11/19/16 11/19/16 08:00 11:34 Temperature 98.4 F Pulse Rate 60 Blood Pressure 172/79 Laboratory Tests 11/18/16 11/19/16 11/19/16 07:11 07:59 07:59 WBC 5.8 Hgb 12.3 Hct 37.7 Total Bilirubin 2.50 H 1.60 H AST 38 ALT 46 Alkaline Phosphatase 115 Objective Vital Signs - 12hr 11/19/16 11/19/16 11/19/16 02:39 08:00 11:34 Temperature 98.4 F Pulse Rate 60 60 Respiratory 18 Rate Blood Pressure 172/79 Blood Pressure 172/79 [Left] Blood Pressure 138/92 [Right Arm] Blood Pressure 172/79 [Right] O2 Sat by Pulse 97 Oximetry - Labs 11/19/16 07:59 11/19/16 07:59 Diabetes panel 11/19/16 Range/Units 07:59 Sodium 141 (137-145) mmol/L Potassium 4.1 D (3.6-5.0) mmol/L Chloride 104.5 (98-107) mmol/L Carbon Dioxide 26 (22-30) mmol/L BUN 3 L (7-17) mg/dL Creatinine 0.5 L (0.7-1.2) mg/dL Glucose 83 (65-100) mg/dL Calcium 8.8 (8.4-10.2) mg/dL AST 38 (5-40) units/L ALT 46 (7-56) units/L Alkaline Phosphatase 115 (35-129) units/L Total Protein 6.4 (6.3-8.2) g/dL Albumin 3.0 L (3.9-5) g/dL Calcium panel 11/19/16 Range/Units 07:59 Calcium 8.8 (8.4-10.2) mg/dL Albumin 3.0 L (3.9-5) g/dL Pituitary panel 11/19/16 Range/Units 07:59 Sodium 141 (137-145) mmol/L Potassium 4.1 D (3.6-5.0) mmol/L Chloride 104.5 (98-107) mmol/L Carbon Dioxide 26 (22-30) mmol/L BUN 3 L (7-17) mg/dL Creatinine 0.5 L (0.7-1.2) mg/dL Glucose 83 (65-100) mg/dL Calcium 8.8 (8.4-10.2) mg/dL Adrenal panel 11/19/16 Range/Units 07:59 Sodium 141 (137-145) mmol/L Potassium 4.1 D (3.6-5.0) mmol/L Chloride 104.5 (98-107) mmol/L Carbon Dioxide 26 (22-30) mmol/L BUN 3 L (7-17) mg/dL Creatinine 0.5 L (0.7-1.2) mg/dL Glucose 83 (65-100) mg/dL Calcium 8.8 (8.4-10.2) mg/dL Total Bilirubin 1.60 H (0.1-1.2) mg/dL AST 38 (5-40) units/L ALT 46 (7-56) units/L Alkaline Phosphatase 115 (35-129) units/L Total Protein 6.4 (6.3-8.2) g/dL Albumin 3.0 L (3.9-5) g/dL
[2016-11-19] MEDS ORDERED: MAGNESIUM SULFATE 2GM/50ML 2 GM/50 ML BAG IV ONE (13:00)
[2016-11-19 16:26] VITALS: BP 104/60
== END 2016-11-19 18:05 | disposition home or self-care (01) | DRG 444 ==
LOC: ED 12:32 → 3A 11-16 02:39
PROVIDERS: ADMIT Internal Medicine; ATTEND Internal Medicine
PROC: 0FC98ZZ Extirpation of Matter from Common Bile Duct, Via Natural or Artificial Opening Endoscopic (ICD-10-PCS; principal; 2016-11-17)
PROC: 0F798ZZ Dilation of Common Bile Duct, Via Natural or Artificial Opening Endoscopic (ICD-10-PCS; 2016-11-17)
DX: K80.42 Calculus of bile duct with acute cholecystitis without obstruction (principal); E43 Unspecified severe protein-calorie malnutrition; I10 Essential (primary) hypertension; Z82.49 Family history of ischemic heart disease and other diseases of the circulatory system; F17.210 Nicotine dependence, cigarettes, uncomplicated; F12.90 Cannabis use, unspecified, uncomplicated; K25.9 Gastric ulcer, unspecified as acute or chronic, without hemorrhage or perforation; G47.30 Sleep apnea, unspecified; Z68.35 Body mass index [BMI] 35.0-35.9, adult
CPT/HCPCS: 36415; 74177; 74181; 74330; 76705; 80048; 80053; 81001; 82150; 83690; 83735; 85025; 85027; 93005; 93010; 96361; 96374; 96375; 99406; C1726; C9113; J0360; J1170; J1650; J2250; J2270; J2405; J2543; J2704; J3475; J7030; Q9967